=== PATIENT | male | born 1985 | race Two or more races ===

== ENCOUNTER 2021-06-17 20:15 | Emergency (ER) | payer OTHER ==
[~2021-06-17 20:15] MED LIST: METHOCARBAMOL 750 MG TABLET PO ONE
[2021-06-17 20:25] VITALS: BP 131/85; PULSE 90; TEMP 98.3; BMI 48.4
[2021-06-17] MEDS ORDERED: KETOROLAC TROMETHAMINE 30 MG/1 ML VIAL IM ONE (21:20)
[2021-06-17] MEDS ORDERED: LIDOCAINE 5% TOPICAL PATCH TP ONE (21:21)
[2021-06-17] MEDS ORDERED: METHOCARBAMOL 500 MG TABLET ONE (21:29)
[2021-06-17] MEDS ORDERED: LIDOCAINE 5% TOPICAL PATCH ONE (21:29)
[2021-06-17] MEDS ORDERED: KETOROLAC TROMETHAMINE 30 MG/1 ML VIAL ONE (21:29)
[2021-06-17] MEDS ORDERED: LIDOCAINE PATCH REMOVAL MC SCH (22:00)
== END 2021-06-17 23:12 | disposition home or self-care (01) ==
LOC: FER 20:15
PROC: 3E0233Z Introduction of Anti-inflammatory into Muscle, Percutaneous Approach (ICD-10-PCS; principal; 2021-06-17)
DX: M54.5 Low back pain (principal)
CPT/HCPCS: 99284-25

== ENCOUNTER 2022-04-13 05:18 | Emergency (ER) | payer OTHER ==
[2022-04-13 05:34] VITALS: BMI 50.8
[2022-04-13] MEDS ORDERED: PIPERACILLIN/TAZOB 4.5 GM 4.5 GM in DEXTROSE 5%-WATER 100 ML IVPB ONE (05:49)
[2022-04-13] MEDS ORDERED: PIPERACILLIN/TAZOBACTAM 4.5 GM VIAL IVPB ONE (05:55)
[2022-04-13 06:58] LABS: BASO % 0.6 % (0-2.0); EOS % 2.5 % (0-4.5); HEMATOCRIT 38.7 % (35.4-49); HEMOGLOBIN 12.9 GM/dL (11.7-16.9); LYMPH % 19.7 % (8-40); MCH 28.4 pg (25.7-33.7); MCHC 33.4 g/dl (32.0-35.9); MEAN CELL VOLUME 84.9 fl (80-96); MEAN PLT VOLUME 8.1 fl (7.5-11.1); MONO % 10.8 % (3.8-10.2); NEUT % 66.4 % (42.8-82.8); PLATELET COUNT 284 10^3/uL (134-434); RBC 4.56 M/mm3 (4.00-5.60); RDW 15.1 % (11.9-15.9); WHITE BLOOD COUNT 7.7 K/mm3 (4.0-10.0)
[2022-04-13 08:45] LABS: BLOOD UREA NITROGEN 13.3 mg/dL (7-18); CREATININE 0.8 mg/dL (0.55-1.3); GLUCOSE,RANDOM 103 mg/dL (74-106); SODIUM 140 mmol/L (136-145)
[2022-04-13 08:46] LABS: ALBUMIN 3.7 g/dl (3.4-5.0); BILIRUBIN,TOTAL 0.1 mg/dL (0.2-1); CALCIUM 8.9 mg/dL (8.5-10.1); CHLORIDE 108 mmol/L (98-107); CO2 28 mmol/L (21-32); SGOT/AST 14 U/L (15-37); SGPT/ALT 29 U/L (13-61); TOT PROT 7.3 g/dl (6.4-8.2)
[2022-04-13 08:47] LABS: ALK PHOS 71 U/L (45-117)
[2022-04-13] MEDS ORDERED: SODIUM CHLORIDE 1,000 ML IV STA (08:52)
[2022-04-13] MEDS ORDERED: DEXAMETHASONE SOD PHOSPHATE 10 MG/1 ML VIAL IVPUSH ONE (09:34)
[2022-04-13] MEDS ORDERED: KETOROLAC TROMETHAMINE 30 MG/1 ML VIAL IVPUSH ONE (09:34)
[2022-04-13] MEDS ORDERED: KETOROLAC TROMETHAMINE 30 MG/1 ML VIAL ONE (09:39)
[2022-04-13] MEDS ORDERED: DEXAMETHASONE SOD PHOSPHATE 10 MG/1 ML VIAL ONE (09:39)
[2022-04-13 10:35] VITALS: BP 127/82; PULSE 79; TEMP 98.9
== END 2022-04-13 10:36 | disposition short-term general hospital (02) ==
LOC: FER 05:18
PROC: 3E033GC Introduction of Other Therapeutic Substance into Peripheral Vein, Percutaneous Approach (ICD-10-PCS; principal; 2022-04-13)
DX: J36 Peritonsillar abscess (principal)
CPT/HCPCS: 36415; 80053; 85025; 99285-25; C9803-CS; J1100; U0003; U0005

== ENCOUNTER 2024-12-17 07:40 | Emergency (ER) | payer OTHER ==
[2024-12-17 07:59] VITALS: BP 147/98; PULSE 93; RESP 16; TEMP 98.6; BMI 49.6
[2024-12-17] MEDS ORDERED: ACETAMINOPHEN 500 MG TABLET (FP) ONE (08:06)
[2024-12-17] MEDS ORDERED: KETOROLAC TROMETHAMINE 30 MG/1 ML VIAL ONE (08:06)
[2024-12-17] MEDS: KETOROLAC TROMETHAMINE 30 MG/1 ML VIAL IM ONE (08:09)
[2024-12-17] MEDS: ACETAMINOPHEN 500 MG TABLET (FP) PO ONE (08:09)
== END 2024-12-17 09:02 | disposition home or self-care (01) ==
LOC: JER 07:40
PROC: 3E0233Z Introduction of Anti-inflammatory into Muscle, Percutaneous Approach (ICD-10-PCS; principal; 2024-12-17)
DX: R51.9 Headache, unspecified (principal); M54.6 Pain in thoracic spine; M54.2 Cervicalgia; M54.50 Low back pain, unspecified; M62.830 Muscle spasm of back; V43.52XA Car driver injured in collision with other type car in traffic accident, initial encounter; Y92.239 Unspecified place in hospital as the place of occurrence of the external cause
CPT/HCPCS: 70450-TC; 72100-TC-FY; 72125-TC; 99285-25